=== PATIENT | female | born 2000 | race Caucasian/White ===

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

== ENCOUNTER → 2021-01-19 16:28 | Outpatient (CLI) | payer OTHER, MEDICAID, SELFPAY ==
[2021-01-19 16:54] LABS: COVID19 -Nasal RAPID Negative (Negative)
== END ==
PROVIDERS: Family Provider Physician Assistant; PCP Registered Nurse Diabetes Educator; Visit Provider Physician Assistant
DX: R09.81 Nasal congestion (principal); R51.9 Headache, unspecified; Z20.822 Contact with and (suspected) exposure to COVID-19
CPT/HCPCS: 87635

== ENCOUNTER → 2021-05-08 16:01 | Outpatient (CLI) | payer OTHER, MEDICAID, SELFPAY ==
[2021-05-08 17:36] LABS: HCG Quantitative /Beta subunit < 2.4 mIU/mL
== END ==
PROVIDERS: Family Provider Physician Assistant; PCP Registered Nurse Diabetes Educator; Referring Provider Family Medicine; Visit Provider Family Medicine
DX: Z34.01 Encounter for supervision of normal first pregnancy, first trimester (principal)
CPT/HCPCS: 36415; 84702

== ENCOUNTER → 2021-06-04 10:33 | Outpatient (CLI) | payer OTHER, MEDICAID, SELFPAY ==
[2021-06-04 11:09] LABS: COVID19 -Nasal RAPID Negative (Negative)
== END ==
PROVIDERS: Family Provider Physician Assistant; PCP Registered Nurse Diabetes Educator; Visit Provider Physician Assistant
DX: Z20.822 Contact with and (suspected) exposure to COVID-19 (principal)
CPT/HCPCS: 87635

== ENCOUNTER → 2021-09-24 16:59 | Outpatient (CLI) | payer OTHER, SELFPAY ==
--- NOTE | 2021-09-24 17:01 | DI.RAD.S_ITS ---
PROCEDURE: XR HAND RT MIN 3V INDICATIONS: hand/wrist injury TECHNIQUE: 3 views of the hand(s) acquired. COMPARISON: None. FINDINGS: Bones: No fractures or dislocations. Carpal bones are normally aligned. No suspicious bony lesions. Soft tissues: No suspicious soft tissue calcifications. IMPRESSION: No acute osseous abnormality. Dictated by: Isma Raza M.D. on 09/24/2021 at 18:16 Approved by: Isma Raza M.D. on 09/24/2021 at 18:17
--- NOTE | 2021-09-24 17:01 | DI.RAD.S_ITS ---
PROCEDURE: XR WRIST RT MIN 3V INDICATIONS: hand/wrist injury TECHNIQUE: 4 views of the wrist were acquired. COMPARISON: None. FINDINGS: Bones: No fractures or dislocations. No suspicious bony lesions. Scaphoid view: Intact Soft tissues: No suspicious soft tissue calcifications. IMPRESSION: No acute osseous abnormality. Dictated by: Isma Raza M.D. on 09/24/2021 at 18:12 Approved by: Isma Raza M.D. on 09/24/2021 at 18:16
== END ==
PROVIDERS: Family Provider Physician Assistant; PCP Registered Nurse Diabetes Educator; Referring Provider Nurse Practitioner Family; Visit Provider Nurse Practitioner Family
DX: S66.911A Strain of unspecified muscle, fascia and tendon at wrist and hand level, right hand, initial encounter (principal); X58.XXXA Exposure to other specified factors, initial encounter
CPT/HCPCS: 73110; 73130

== ENCOUNTER 2022-05-17 14:20 | Emergency (ER) | payer OTHER, MEDICAID, SELFPAY ==
[2022-05-17] VITALS (7 sets, daily range): BP systolic 115; BP diastolic 70–73; PULSE 97–117; RESP 18; TEMP 36.4; O2SAT 99–100; BMI 28.3
[2022-05-17 15:15] LABS: Amorphous Sediment Urine 1+; Bacteria Urine Moderate (10-30); RBC Urine None Seen (0-5/HPF); Squamous Epithelial Cell Urine 10-30 /HPF (0-5/HPF); WBC Urine 0-1/HPF (0-5/HPF)
--- NOTE | 2022-05-17 16:53 | ED_ITS ---
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 She says she found out she was about 5 days ago went to a clinic no ultrasound was done she thinks she is about 5 weeks. She denies any painful or frequent urination. No fever or chills. She is currently taking vitamins. Previously she miscarried. She is noted to be tachycardic she denies any dizziness lightheadedness or shortness of breath. No vaginal bleeding Related Data Home Medications Medication Instructions Recorded Confirmed ascorbate calcium (vitamin C) PO 08/23/20 09/24/21 cholecalciferol (vitamin D3) PO 08/23/20 09/24/21 Previous Rx's Medication Instructions Recorded fluticasone propionate 50 2 spray intranasal DAILY #9.9 mL 08/23/20 mcg/actuation nasal spray,suspension (Flonase Allergy Relief) levonorgestrel-ethinyl estradiol 1 tab PO DAILY #84 tabs 08/23/20 0.1 mg-20 mcg tablet (Lutera (28)) azelastine 137 mcg (0.1 %) nasal 1 spray intranasal BID #30 mL 01/19/21 spray aerosol Allergies Allergy/AdvReac Type Severity Reaction Status Date / Time No Known Drug Allergies Allergy Verified 01/19/21 16:22 Review of Systems Review of Systems Narrative: GENERAL: Denies chills, fatigue, malaise, fever, sweats, travel HEENT: Denies sinus pain, ear pain, sore throat, difficulty swallowing, neck pain RESPIRATORY: Denies dyspnea, cough, wheezing, hemoptysis, sputum. CARDIOVASCULAR: Denies chest pain, palpitations, orthopnea, edema GASTROINTESTINAL: Denies nausea, vomiting, abdominal pain, diarrhea, constipation, melena. : Denies dysuria, frequency, incontinence, hematuria, urinary retention, flank pain. MUSCULOSKELETAL: Denies weakness, joint pain, or bony pain SKIN: No rash, no erythema, no pruritus NEUROLOGIC: Denies weakness, dizziness, headache, numbness, change in speech, confusion PSYCHIATRIC: No concerning psychosocial issues. 12 point review of systems is negative except for those stated above and HPI Patient History Medical History Allergic rhinitis Anxiety Dysmenorrhea Foot sprain Healthy child Oppositional defiant disorder Toe contusion Surgical History No pertinent past surgical history Family History (Updated 05/01/21 @ 07:55 by Mckenzie Lara RN) Father No problems noted. Mother No problems noted. Grandfather No problems noted. Grandmother No problems noted. Grandfather No problems noted. Grandmother No problems noted. alcohol intake frequency: holidays/special occasions only Substance Use Type: does not use Exam Initial Vital Signs Initial Vital Signs: Vital Signs Temperature 97.5 F L 05/17/22 14:33 Pulse Rate 115 H 05/17/22 14:33 Respiratory Rate 18 05/17/22 14:33 Blood Pressure 115/73 05/17/22 14:33 Pulse Oximetry 100 05/17/22 14:33 Oxygen Delivery Method 05/17/22 14:33 GENERAL: Alert 21-year-old female and in no acute distress. HEENT: Head atraumatic,EOMI, pupils reactive, face symmetric, moist mucous membranes CARDIOVASCULAR: Regular rate and rhythm without murmurs, rubs or gallops. RESPIRATORY: Breath sounds equal bilaterally, no wheezes rales or rhonchi. ABDOMEN: Soft, n minimal right lower quadrant pain no rebound no tenderness. EXTREMITIES: Normal range of motion, no clubbing or edema. Neurovascularly intact NEUROLOGICAL: Alert and oriented x4. SKIN: Warm, dry, no laceration, no petechiae, no rashes or lesions. Course Orders Ordered: ED Orders 05/17/22 14:40 Urine Culture Stat Urine Microscopic Stat 05/17/22 16:58 US OB <= 14 weeks fetus Stat 05/17/22 17:52 ABO RH Type Stat CBC Auto Diff [Complete Blood Count AUTO DIFF] Stat CMP [Comprehensive Metabolic Panel] Stat HCG Quantitative /Beta subunit Stat Discontinued Medications Sodium Chloride (Normal Saline 0.9%) 1,000 mls @ 1,000 mls/hr IV BOLUS ONE Stop: 05/17/22 18:38 Last Admin: 05/17/22 19:28 Dose: Not Given Documented By: LAURA Vital Signs Vital signs: Vital Signs - 8 hr 05/17/22 14:33 05/17/22 16:07 05/17/22 16:30 Temperature 97.5 F L Pulse Rate 115 H 109 H 101 H Respiratory Rate 18 Blood Pressure 115/73 Pulse Oximetry 100 100 100 Oxygen Delivery Method Room Air 05/17/22 17:00 05/17/22 17:30 05/17/22 19:01 Temperature Pulse Rate 117 H 110 H 97 H Respiratory Rate Blood Pressure Pulse Oximetry 99 100 99 Oxygen Delivery Method 05/17/22 19:02 05/17/22 19:02 Temperature Pulse Rate 98 H Respiratory Rate Blood Pressure 115/70 Pulse Oximetry 100 Oxygen Delivery Method MDM - Female Genitourinary Lab Data Result diagrams: 05/17/22 17:52 05/17/22 17:52 Labs: Lab Results 05/17/22 05/17/22 05/17/22 Range/Units 14:40 17:52 17:52 WBC 7.5 (4.5-11.0) X10^3/uL RBC 4.41 (4.0-5.2) X10^6/uL Hgb 13.8 (12.0-16.0) g/dL Hct 39.4 (36-46) % MCV 89.4 (80-100) fL MCH 31.2 (26-34) PG MCHC 34.9 (30-36) % RDW 13.0 (11.6-14.8) % Plt Count 173 (150-400) X10^3/uL Neut % (Auto) 56.6 (50-75) % Lymph % (Auto) 33.7 (25-40) % [place] % (Auto) 8.1 (3-14) % Eos % (Auto) 1.0 L (2-4) % Baso % (Auto) 0.6 (0-2) % Neut # (Auto) 4200 (1918-2592) /uL Lymph # (Auto) 2500 (6258-4490) /uL [place] # (Auto) 600 (0-900) /uL Eos # (Auto) 100 (0-450) /uL Baso # (Auto) 0 (0-100) /uL Sodium 138 (137-145) mmol/L Potassium 3.8 (3.4-5.1) mmol/L Chloride 105 (98-107) mmol/L Carbon Dioxide 20 L (22-32) mmol/L BUN 14 (7-17) mg/dL Creatinine 0.61 (0.52-1.04) mg/dL Estimated GFR > 60 (>60) mL/min BUN/Creatinine Ratio 23.0 H (6-22) Glucose 89 (70-100) mg/dL Calcium 9.0 (8.4-10.2) mg/dL Total Bilirubin 0.8 (0.2-1.3) mg/dL AST 30 (14-36) IU/L ALT 25 (<35) IU/L Alkaline Phosphatase 54 (38-126) U/L Total Protein 7.4 (6.3-8.2) g/dL Albumin 4.3 (3.5-5.0) g/dL Globulin 3.1 (1.7-4.1) g/dL Albumin/Globulin Ratio 1.4 (1.0-2.8) HCG, Quant 4822.7 mIU/mL Urine RBC None seen (0-5/HPF) Urine WBC 0-1/hpf (0-5/HPF) Ur Squamous Epith Cells 10-30 /hpf H (0-5/HPF) Amorphous Sediment 1+ Urine Bacteria Moderate (10-30) H (None) Ur Culture Indicated? Culture not indicate Blood Type 05/17/22 Range/Units 17:52 WBC (4.5-11.0) X10^3/uL RBC (4.0-5.2) X10^6/uL Hgb (12.0-16.0) g/dL Hct (36-46) % MCV (80-100) fL MCH (26-34) PG MCHC (30-36) % RDW (11.6-14.8) % Plt Count (150-400) X10^3/uL Neut % (Auto) (50-75) % Lymph % (Auto) (25-40) % [place] % (Auto) (3-14) % Eos % (Auto) (2-4) % Baso % (Auto) (0-2) % Neut # (Auto) (3243-2359) /uL Lymph # (Auto) (7809-7629) /uL [place] # (Auto) (0-900) /uL Eos # (Auto) (0-450) /uL Baso # (Auto) (0-100) /uL Sodium (137-145) mmol/L Potassium (3.4-5.1) mmol/L Chloride (98-107) mmol/L Carbon Dioxide (22-32) mmol/L BUN (7-17) mg/dL Creatinine (0.52-1.04) mg/dL Estimated GFR (>60) mL/min BUN/Creatinine Ratio (6-22) Glucose (70-100) mg/dL Calcium (8.4-10.2) mg/dL Total Bilirubin (0.2-1.3) mg/dL AST (14-36) IU/L ALT (<35) IU/L Alkaline Phosphatase (38-126) U/L Total Protein (6.3-8.2) g/dL Albumin (3.5-5.0) g/dL Globulin (1.7-4.1) g/dL Albumin/Globulin Ratio (1.0-2.8) HCG, Quant mIU/mL Urine RBC (0-5/HPF) Urine WBC (0-5/HPF) Ur Squamous Epith Cells (0-5/HPF) Amorphous Sediment Urine Bacteria (None) Ur Culture Indicated? Blood Type A Negative Point of Care Testing Test Results Positive Urine Dip Bedside Urine Glucose Negative Bedside Urine Bilirubin - Negative Bedside Urine Ketone - Negative Urine Specific [place] 1.030 Bedside Urine Occult Blood - Negative Bedside Urine pH 6 Bedside Urine Protein +/- 15 Bedside Urine Urobilinogen - Negative Bedside Urine Nitrite - Negative Bedside Urine Leukocytes - Negative Esterase Imaging Data US - OB: Radiologist's Impression: nt: Jasmyn Barrett MR#: [id number] : 2000 Acct:[id number] Age/Sex: 21 / F Date of Service: 05/17/22 Loc: ED Accession Number: [id number] ?? Procedure: US OB <= 14 weeks fetus Ordering Provider: Maricel Antunez D.O. PROCEDURE:? US OB <= 14 WEEKS FETUS ? INDICATIONS:? RIGHT LOWER QUADRANT PAIN. APPROX 5 WEEKS BY LMP.. ? OUTSIDE/PRIOR DATING DATA:? Last menstrual period (LMP):? 04/07/22.? LMP-based estimated date of delivery (TESSIE):? 01/12/23.? First dating scan (date and location):? Current study.? Estimated date of delivery (TESSIE) from first dating scan:? Not applicable. ? TECHNIQUE:? Real-time scanning was performed of the fetus and maternal pelvic organs, with image documentation.? Endovaginal scanning was also performed to better visualize the fetus and maternal ovaries.? ? COMPARISON:? None. ? FINDINGS:? ? Embryo:? There is a tiny intrauterine fluid collection with an average gestational sac diameter of 0.62 cm corresponding to a five week two day +/-12 days gestation.? There may be a yolk sac visible.? A pole was not identified at this point. ? Maternal organs:? The uterus is anteverted.? The cervix is closed.? There is no perigestational hemorrhage.? The right ovary measures 4.2 x 2.1 cm and contains a 1.9 cm heterogeneous structure, probably a corpus luteum.? The left ovary measures 3.4 x 2.0 cm and has a normal follicular echotexture without dominant follicle.? There is appropriate blood flow in each ovary.? There is a trace amount of simple fluid in the cul-de-sac. ? ? IMPRESSION:? ? 1. Possible early intrauterine with a gestational age of five weeks two days.? Continued follow-up with beta HCG levels and reimaging in 2-3 weeks to document viability is recommended. ? 2. No perigestational hemorrhage. ? 3. Normal ovaries with a probable right corpus luteum.? ? We strive to produce accurate, complete, and clear reports of imaging services. To assist us in improving patient care, this report was composed using standard report templates and voice recognition software. Therefore, it may contain abnormal punctuation, insertions and/or omissions. Occasional wrong-word or sound-alike substitutions may occur. Though we review the report and make efforts to correct it, we do recommend that the report be read carefully in proper context to recognize any text inaccuracies. ? Dictated by: Mae Urbina M.D. on 05/17/2022 at 18:44 ?? MDM Narrative Medical decision making narrative: Patient does have some right-sided lower quadrant pain and back pain. Not consistent with appendicitis although was considered. Ectopic is ruled out with a probable IUP on ultrasound. HCG is 4800. She currently does not have any sort of vaginal bleeding. She is blood type A negative. Discussed with her she will need to follow-up with OBGYN. Discharge Plan Departure Patient Disposition: Home Clinical Impression: Instructions: DI for -- Discomforts and Remedies Activity Restrictions/Additional Instructions: HCG 4822.7 Blood Type A negative *You have been diagnosed with the *What to do: Your pain may be related to . You are currently 5 weeks *Continue to take medications as directed Tylenol 1000 mg every 6 hours if needed for [id number] pain *Follow up with your primary care provider in 2-3 days or call [phone] *Return to ER if you should have increasing pain vaginal bleeding or any new, worsening or concerning symptoms Prescriptions: No Action azelastine 137 mcg (0.1 %) aerosol,spray 1 spray intranasal BID Qty: 30 0RF Rx Instructions: administer into each nostril ascorbate calcium (vitamin C) PO cholecalciferol (vitamin D3) PO levonorgestrel-ethinyl estrad [Lutera (28)] 0.1-20 mg-mcg tablet 1 tab PO DAILY Qty: 84 3RF fluticasone propionate [Flonase Allergy Relief] 50 mcg/actuation spray,suspension 2 spray intranasal DAILY Qty: 9.9 5RF Rx Instructions: administer into each nostril Referrals: Harrison Reece ARNP [Primary Care Provider] - Visit Report Forms: Patient Portal/API
--- NOTE | 2022-05-17 16:58 | DI.US.S_ITS ---
PROCEDURE: US OB <= 14 WEEKS FETUS INDICATIONS: RIGHT LOWER QUADRANT PAIN. APPROX 5 WEEKS BY LMP.. OUTSIDE/PRIOR DATING DATA: Last menstrual period (LMP): 04/07/22. LMP-based estimated date of delivery (TESSIE): 01/12/23. First dating scan (date and location): Current study. Estimated date of delivery (TESSIE) from first dating scan: Not applicable. TECHNIQUE: Real-time scanning was performed of the fetus and maternal pelvic organs, with image documentation. Endovaginal scanning was also performed to better visualize the fetus and maternal ovaries. COMPARISON: None. FINDINGS: Embryo: There is a tiny intrauterine fluid collection with an average gestational sac diameter of 0.62 cm corresponding to a five week two day +/-12 days gestation. There may be a yolk sac visible. A pole was not identified at this point. Maternal organs: The uterus is anteverted. The cervix is closed. There is no perigestational hemorrhage. The right ovary measures 4.2 x 2.1 cm and contains a 1.9 cm heterogeneous structure, probably a corpus luteum. The left ovary measures 3.4 x 2.0 cm and has a normal follicular echotexture without dominant follicle. There is appropriate blood flow in each ovary. There is a trace amount of simple fluid in the cul-de-sac. IMPRESSION: 1. Possible early intrauterine with a gestational age of five weeks two days. Continued follow-up with beta HCG levels and reimaging in 2-3 weeks to document viability is recommended. 2. No perigestational hemorrhage. 3. Normal ovaries with a probable right corpus luteum. We strive to produce accurate, complete, and clear reports of imaging services. To assist us in improving patient care, this report was composed using standard report templates and voice recognition software. Therefore, it may contain abnormal punctuation, insertions and/or omissions. Occasional wrong-word or sound-alike substitutions may occur. Though we review the report and make efforts to correct it, we do recommend that the report be read carefully in proper context to recognize any text inaccuracies. Dictated by: Mae Urbina M.D. on 05/17/2022 at 18:44 Approved by: Mae Urbina M.D. on 05/17/2022 at 18:49
[2022-05-17 18:20] LABS: Add Manual Diff / Slide Review NO; Basophils Absolute Auto 0 /uL (0-100); Basophils Percent Auto 0.6 % (0-2); Eosinophils Absolute Auto 100 /uL (0-450); Hematocrit 39.4 % (36-46); Hemoglobin 13.8 g/dL (12.0-16.0); Lymphocytes Absolute Auto 2500 /uL (1100-4500); Lymphocytes Percent Auto 33.7 % (25-40); Mean Corpuscular HGB Conc 34.9 % (30-36); Mean Corpuscular Hemoglobin 31.2 PG (26-34); Mean Corpuscular Volume 89.4 fL (80-100); Monocytes Absolute Auto 600 /uL (0-900); Monocytes Percent Auto 8.1 % (3-14); Neutrophils Absolute Auto 4200 /uL (1500-7000); Neutrophils Percent Auto 56.6 % (50-75); Platelet Count 173 X10^3/uL (150-400); Red Blood Cell Count 4.41 X10^6/uL (4.0-5.2); White Blood Cell Count 7.5 X10^3/uL (4.5-11.0)
[2022-05-17 18:35] LABS: Alanine Aminotransferase 25 IU/L (<35); Albumin 4.3 g/dL (3.5-5.0); Albumin Globulin Ratio 1.4 (1.0-2.8); Alkaline Phosphatase 54 U/L (38-126); Aspartate Aminotransferase 30 IU/L (14-36); Bilirubin Total 0.8 mg/dL (0.2-1.3); Blood Urea Nitrogen 14 mg/dL (7-17); Carbon Dioxide 20 mmol/L (22-32); Chloride 105 mmol/L (98-107); Estimated Glomerular Filt Rate > 60 mL/min (>60); Globulin 3.1 g/dL (1.7-4.1); Glucose 89 mg/dL (70-100); HEMOLYSIS 54 (0-50); Potassium 3.8 mmol/L (3.4-5.1); Sodium 138 mmol/L (137-145); Total Protein 7.4 g/dL (6.3-8.2)
[2022-05-17 18:51] LABS: HCG Quantitative /Beta subunit 4822.7 mIU/mL
== END 2022-05-17 19:31 | disposition home or self-care (01) ==
PROVIDERS: Emergency Provider Emergency Medicine; Family Provider Physician Assistant; PCP Registered Nurse Diabetes Educator
DX: O26.91 Pregnancy related conditions, unspecified, first trimester (principal); R10.31 Right lower quadrant pain; Z3A.01 Less than 8 weeks gestation of pregnancy
CPT/HCPCS: 76801; 76817; 80053; 81003; 81015; 81025; 84702; 85025; 86900; 86901; 87086; 93976; 99282; 99284

== ENCOUNTER 2022-06-15 13:19 | Emergency (ER) | payer OTHER, MEDICAID, SELFPAY | END 2022-06-15 13:36 | disposition left against medical advice (07) | PROVIDERS: Emergency Provider Emergency Medicine; Family Provider Physician Assistant; PCP Registered Nurse Diabetes Educator ==

== ENCOUNTER → 2022-11-21 16:30 | Outpatient (CLI) | payer OTHER, MEDICAID, SELFPAY | PROVIDERS: Family Provider Physician Assistant; PCP Nurse Practitioner Family; Referring Provider Obstetrics & Gynecology; Visit Provider Obstetrics & Gynecology | DX: O26.819 Pregnancy related exhaustion and fatigue, unspecified trimester (principal) | CPT/HCPCS: 36415; 84443 ==

== ENCOUNTER 2022-12-04 18:53 | Observation (INO) | payer OTHER, MEDICAID, SELFPAY ==
[2022-12-04 19:36] LABS: Appearance Urine UA CLOUDY; Bilirubin Urine UA NEGATIVE (NEGATIVE); Color Urine UA YELLOW; Glucose Urine UA NEGATIVE (Negative); Ketones Urine UA NEGATIVE (NEGATIVE); Leukocyte Esterase Urine UA NEGATIVE (NEGATIVE); Nitrite Urine UA NEGATIVE (Negative); Occult Blood Urine UA 3+ (Negative); Protein Urine UA 2+ (Negative); Specific Gravity Urine UA >=1.030 (1.000-1.035)
[2022-12-04 19:38] LABS: pH Urine UA 6.5 (4.5-8.0)
[2022-12-04 19:54] LABS: Bacteria Urine Moderate (10-30); Culture Indicated Urine Cult Not Indicated; RBC Urine >100/HPF (0-5/HPF); Squamous Epithelial Cell Urine 5-10 /HPF (0-5/HPF); WBC Urine 0-1/HPF (0-5/HPF)
[2022-12-04] MEDS: LACTATED RINGERS 1,000 ML 1000 ML IV (21:00)
[2022-12-04 21:07] LABS: Add Manual Diff / Slide Review NO; Basophils Absolute Auto 100 /uL (0-100); Basophils Percent Auto 0.5 % (0-2); Eosinophils Absolute Auto 100 /uL (0-450); Eosinophils Percent Auto 0.4 % (2-4); Hematocrit 38.6 % (36-46); Hemoglobin 13.4 g/dL (12.0-16.0); Lymphocytes Absolute Auto 1700 /uL (1100-4500); Lymphocytes Percent Auto 13.4 % (25-40); Mean Corpuscular HGB Conc 34.8 % (30-36); Mean Corpuscular Volume 92.1 fL (80-100); Monocytes Absolute Auto 700 /uL (0-900); Monocytes Percent Auto 5.3 % (3-14); Neutrophils Absolute Auto 10300 /uL (1500-7000); Neutrophils Percent Auto 80.4 % (50-75); Platelet Count 121 X10^3/uL (150-400); Red Blood Cell Count 4.19 X10^6/uL (4.0-5.2); Red Cell Distribution Width 13.4 % (11.6-14.8); White Blood Cell Count 12.8 X10^3/uL (4.5-11.0)
== END 2022-12-04 22:00 | disposition home or self-care (01) ==
PROVIDERS: Admitting Provider Obstetrics & Gynecology; Family Provider Physician Assistant; PCP Nurse Practitioner Family; Referring Provider Obstetrics & Gynecology; Visit Provider Obstetrics & Gynecology
DX: O60.03 Preterm labor without delivery, third trimester (principal); O23.43 Unspecified infection of urinary tract in pregnancy, third trimester; N39.0 Urinary tract infection, site not specified; Z3A.34 34 weeks gestation of pregnancy
CPT/HCPCS: 59025; 59050; 81001; 85025; 87086; 96360; G0378; G0379

== ENCOUNTER 2023-08-01 18:50 | Emergency (ER) | payer OTHER, MEDICAID, SELFPAY ==
[2023-08-01 18:54] VITALS: BP 123/82; PULSE 94; RESP 18; TEMP 36.9; O2SAT 96; BMI 32.5
--- NOTE | 2023-08-01 21:37 | ED_ITS ---
HPI - Ear Problem General Chief complaint: Ear Stated complaint: ear pain, DYKES, seen at [facility] antibiotics nt wrkng Time Seen by Provider: 08/01/23 21:25 History of Present Illness HPI Narrative: 22-year-old female presents with left-sided otalgia that began several days ago with symptoms now improving but worsening on her right ear. Patient also reports generalized, throbbing, non-radiating headache for 1 day. Patient was seen in urgent care clinic and diagnosed with acute otitis media and given Augmentin. Patient reports symptoms have not improved. No other complaints or associated injuries noted. Related Data Home Medications Medication Instructions Recorded Confirmed mecobalamin (vitamin B12) 500 mcg 1 mcg PO DAILY 11/15/22 11/21/22 chewable tablet prenat.vits,sabrina,qhq-oewl-bmvay 1 tab PO DAILY 11/15/22 11/21/22 Allergies Allergy/AdvReac Type Severity Reaction Status Date / Time No Known Drug Allergies Allergy Verified 11/21/22 15:25 Review of Systems Review of Systems Narrative: See HPI for pertinent positives, otherwise review of systems negative Patient History Medical History (Updated 08/16/23 @ 00:01 by ) Developmental disability Dysmenorrhea Allergic rhinitis Oppositional defiant disorder Anxiety Healthy child Surgical History (Updated 11/15/22 @ 11:01 by Conchis Medina, MARLENY) Lillian teeth extracted No pertinent past surgical history Family History (Updated 05/01/21 @ 07:55 by Mckenzie Lara RN) Father No problems noted. Mother No problems noted. Grandfather No problems noted. Grandmother No problems noted. Grandfather No problems noted. Grandmother No problems noted. 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) Previous occupational history: working on [employer] at the [employer] special marcelino needs: No travel history: over 6 months ago seatbelt use: always water heater temp set < 120 deg: Yes working smoke detector in home: Yes fire extinguisher in home: Yes carbon monox detector in home: Yes firearms in home: No do you feel safe at home: Yes Smoking Status: Never smoker second hand exposure: No alcohol intake: never substance use type: does not use during the past year weight has: remained stable well-balanced diet: about half the time daily servings fruits/ve-4 caffeine: No Type(s) of exercise: none Smoking Status: Never smoker alcohol intake frequency: holidays/special occasions only Substance Use Type: does not use Exam Narrative Exam Narrative: General: Awake, alert, in no apparent distress HEENT: Normocephalic, atraumatic, pupils equal and reactive to light, oropharynx clear, oral mucosa moist, TMs clear bilateral after cerumen removal Neck: Supple Cardiovascular: 2+ radial bilateral, regular rhythm/rate Pulmonary: Regular respirations, no respiratory distress Abdominal: Soft, nontender, nondistended : Exam deferred Back: Nontender, normal motion Skin: Warm, dry, intact, no rashes Neuro: No focal neurological deficits, moving all 4 extremities equally, normal speech Psych: Normal mood, normal affect Initial Vital Signs Initial Vital Signs: Vital Signs Temperature 98.5 F 08/01/23 18:54 Pulse Rate 94 H 08/01/23 18:54 Respiratory Rate 18 08/01/23 18:54 Blood Pressure 123/82 08/01/23 18:54 Pulse Oximetry 96 08/01/23 18:54 Oxygen Delivery Method Room Air 08/01/23 18:54 Course Vital Signs Vital signs: Vital Signs - 8 hr 08/01/23 18:54 Temperature 98.5 F Pulse Rate 94 H Respiratory Rate 18 Blood Pressure 123/82 Pulse Oximetry 96 Oxygen Delivery Method Room Air Medical Decision Making Differential Diagnosis Differential Diagnosis: Viral syndrome, otitis externa, otitis media MDM Narrative Medical decision making narrative: Patient presents with earache and currently on Augmentin for otitis media. Patient appears clinically well and comfortable. Cerumen removed and TMs not suggestive of acute otitis media. Patient reports feeling better. PCP follow- up recommended within 1 week as needed. Return precautions given. Patient discharged home in stable condition. Discharge Plan Departure Patient Disposition: Home Clinical Impression: Earache, Headache, Excessive cerumen in ear canal Instructions: Cerumen Impaction Activity Restrictions/Additional Instructions: Use Afrin as directed Prescriptions: No Action prenat.vits,sabrina,pns-vjhv-ucuat Tablet 1 tab PO DAILY mecobalamin (vitamin B12) 500 mcg tablet,chewable 1 mcg PO DAILY Referrals: Iris Farooq DNP, CLASSROOM COORDINATOR [Primary Care Provider] - Stand Alone Forms: Patient Portal/API
[2023-08-01 21:57] VITALS: BP 120/76; PULSE 88; RESP 17; O2SAT 98
== END 2023-08-01 21:58 | disposition home or self-care (01) ==
PROVIDERS: Emergency Provider Emergency Medicine; Family Provider Physician Assistant; PCP Nurse Practitioner Family
DX: H92.01 Otalgia, right ear (principal); H61.22 Impacted cerumen, left ear; R51.9 Headache, unspecified
CPT/HCPCS: 99281